=== PATIENT | male | born 1990 | race Caucasian/White ===

== ENCOUNTER 2021-02-06 08:31 | Emergency (ER) | payer BC ==
[~2021-02-06] VITALS: Ht 188 cm; Wt 77.1 kg
[2021-02-06] MEDS ORDERED: FLONASE ALLERG9.9 ML NASAL (12:39)
[2021-02-06] MEDS ORDERED: PYRIDIUM DS200 MG PO (12:39)
== END 2021-02-06 12:55 | disposition home or self-care (01) ==
LOC: ER 08:31
DX: N39.0 Urinary tract infection, site not specified (principal); J06.9 Acute upper respiratory infection, unspecified; Z03.818 Encounter for observation for suspected exposure to other biological agents ruled out

== ENCOUNTER → 2021-06-13 11:24 | Outpatient (CLI) | payer BC ==
[~2021-06-13 11:24] MED LIST: FLONASE ALLERG9.9 ML NASAL; PYRIDIUM DS200 MG PO
== END | disposition home or self-care (01) ==
LOC: LAB 11:24
DX: Z00.01 Encounter for general adult medical examination with abnormal findings (principal); Z11.3 Encounter for screening for infections with a predominantly sexual mode of transmission; Z11.4 Encounter for screening for human immunodeficiency virus [HIV]; Z13.220 Encounter for screening for lipoid disorders; N30.00 Acute cystitis without hematuria